=== PATIENT | male | born 1960 | race Caucasian/White ===

== ENCOUNTER → 2018-11-08 | Outpatient (CLI) | payer OTHER ==
--- NOTE | 2018-11-01 16:09 | EKG ---
[address] [address] ELECTROCARDIOGRAM REPORT Name: RAH TAY Room #: [id number] Admission: 11/01/18 Attend Phys: Obdulio Butcher MD Discharge: Date of : 58 Report #: [id number] THIS REPORT FOR: //name// [facility] Test Date: 2018-11-01 Test Time: 13:34:39 Pat Name: RAH TAY Department: Room: Gender: Executive Sales Manager: MERA : 1960 Requested By: Obdulio Butcher Order Number: [id number] MD: Durga Vazquez Measurements Intervals [place] Rate: 76 P: 48 WI: 171 QRS: 9 QRSD: 98 T: 29 QT: 363 QTc: 409 Interpretive Statements Sinus rhythm Normal tracing No previous ECG available for comparison Electronically Signed On 11-01-2018 16:08:50 [employer] by Durga Vazquez [email or web address] <ELECTRONICALLY SIGNED> By: Durga Vazquez MD, [facility] 11/01/18 1608 1334 1334 Durga Vazquez MD, FACC /EPI
[~2018-11-08] MED LIST: ADVAIR HFA 230M12 GM INH; ALMACONE LIQUI355 ML PO; ARIPIPRAZOLE2 MG PO; BETHANECHOL 5MG5 MG PO; COLACE100 MG PO; ESCITALOPRAM OX20 MG PO; FIBER500 MG PO; FLOMAX0.4 MG PO; FLONASE 0.05%50 MCG NASAL; LEVETIRACETAM1000 MG PO; LIORESAL 10 MG10 MG PO; MILK OF MA2400 MG/10 PO; OMEPRAZOLE40 MG PO; PHENYTOIN SODI100 M3 PO; SENNA8.6 MG PO; THEREMS H PO; TYLENOL325 MG PO; VITAMIN D3400 UNIT PO
== END ==
LOC: LITH 11-01 13:04
DX: N20.1 Calculus of ureter (principal); Z86.73 Personal history of transient ischemic attack (TIA), and cerebral infarction without residual deficits; Z98.890 Other specified postprocedural states
CPT/HCPCS: 50010